=== PATIENT | female | born 1990 | race African-American/Black ===

== ENCOUNTER 2016-12-26 03:22 | Emergency (ER) | payer MEDICAID, OTHER ==
[~2016-12-26] VITALS: Ht 165.1 cm; Wt 61.0 kg
[2016-12-26] MEDS ORDERED: SODIUM CHLORIDE 0.9% 1,000 ML IV ONE (04:17)
[2016-12-26] MEDS ORDERED: HYDROCODONE/ACETAMINOPHEN 5/325MG TABLET PO STA (04:17)
[2016-12-26 04:34] LABS: HEMATOCRIT. 27.3 % (36.0-48.0); HEMOGLOBIN. 9.4 g/dL (12.0-16.0); MEAN CORPUSCULAR HEMOGLOBIN 28.2 pg (28.0-32.0); MEAN CORPUSCULAR HGB CONC 34.3 g/dL (31.0-37.0); MEAN CORPUSCULAR VOLUME 82.2 fL (81.0-99.0); MEAN PLATELET VOLUME 7.6 fl (7.4-10.4); PLATELET 310 x1000/uL (130-400); RED BLOOD CELL COUNT 3.32 mill/uL (4.2-5.4); RED CELL DISTRIBUTION WIDTH 13.7 % (11.6-14.6); WHITE BLOOD COUNT 7.8 x1000/uL (4.5-11.0)
[2016-12-26 04:35] LABS: DIFFERENTIAL COMMENT 1
[2016-12-26 04:44] LABS: ALANINE AMINOTRANSFERASE < 6 IU/L (13-61); ANION GAP 15; CALCIUM 8.2 mg/dL (8.5-10.1); CARBON DIOXIDE 27 mEq/L (21-32); CHLORIDE 100 mEq/L (98-107); INDEX HEMOLYSI 1 (1-3); INDEX ICTERIC 1 (1-4); INDEX LIPEMIC 1 (1-3); UREA NITROGEN BLOOD 11 mg/dL (7-21); eGFR > 60 mL/min (>60)
[2016-12-26 05:46] LABS: CLARITY URINE CLEAR (CLEAR); COLOR URINE YELLOW (YELLOW); GLUCOSE URINE NEGATIVE (NEGATIVE); KETONES URINE 1+ (NEGATIVE); LEUKOCYTE ESTERASE URINE TRACE (NEGATIVE); NITRITE URINE NEGATIVE (NEGATIVE); OCCULT BLOOD URINE TRACE (NEGATIVE); PH URINE 5.5 (4.5-8.0); PROTEIN URINE NEGATIVE (NEGATIVE); SPECIFIC GRAVITY URINE 1.013 (1.005-1.030)
[2016-12-26 06:22] LABS: SQUAMOUS EPITHELIAL CELL URINE FEW /lpf (RARE/1+)
[2016-12-26 06:32] LABS: WBC URINE 0-2 /hpf (0-2)
[2016-12-26 06:34] LABS: BACTERIA URINE TRACE; RBC URINE 0-2 /hpf (0-2)
[2016-12-26 06:48] LABS: PLATELET ESTIMATE NORMAL
[2016-12-26 07:29] VITALS: BP 98/57
== END 2016-12-26 07:31 | disposition home or self-care (01) ==
LOC: ER 03:22
DX: R51 Headache (principal); R19.7 Diarrhea, unspecified; R52 Pain, unspecified; R11.2 Nausea with vomiting, unspecified; J45.909 Unspecified asthma, uncomplicated; Z87.440 Personal history of urinary (tract) infections
CPT/HCPCS: 36415; 80053; 81001; 83605; 85025; 96360; 96361; 99285; J7030; Z7610

== ENCOUNTER 2018-04-16 03:10 | Emergency (ER) | payer MEDICAID, OTHER ==
[~2018-04-16] VITALS: Ht 165.1 cm; Wt 63.0 kg
[2018-04-16] MEDS ORDERED: ONDANSETRON HCL 4MG/2ML VIAL IV STA (05:42)
[2018-04-16] MEDS ORDERED: SODIUM CHLORIDE 0.9% 1,000 ML IV ONE ×2 (05:42→09:45)
[2018-04-16 06:11] LABS: BASOPHILS % 0.2 % (0.0-2.0); HEMATOCRIT. 35.3 % (36.0-48.0); LYMPHOCYTES % 8.4 % (20.0-50.0); MEAN CORPUSCULAR HEMOGLOBIN 29.1 pg (28.0-32.0); MEAN CORPUSCULAR VOLUME 85.3 fL (81.0-99.0); MEAN PLATELET VOLUME 7.9 fl (7.4-10.4); MONOCYTES % 2.5 % (2.0-8.0); NEUTROPHILS % 88.9 % (40.0-76.0); PLATELET 307 x1000/uL (130-400); RED BLOOD CELL COUNT 4.14 mill/uL (4.2-5.4)
[2018-04-16 06:13] LABS: CHLORIDE 107 mEq/L (98-107)
[2018-04-16 06:32] LABS: HCG SCREEN NEGATIVE
[2018-04-16 10:30] VITALS: BP 120/70
[2018-04-16 10:36] LABS: CLARITY URINE CLEAR (CLEAR); COLOR URINE YELLOW (YELLOW); KETONES URINE TRACE (NEGATIVE); LEUKOCYTE ESTERASE URINE TRACE (NEGATIVE); NITRITE URINE NEGATIVE (NEGATIVE); OCCULT BLOOD URINE NEGATIVE (NEGATIVE); PROTEIN URINE NEGATIVE (NEGATIVE); SPECIFIC GRAVITY URINE 1.013 (1.005-1.030); UROBILINOGEN URINE 0.2 E.U./dL (0.2-1.0)
== END 2018-04-16 11:02 | disposition home or self-care (01) ==
LOC: ER 03:10
DX: F10.129 Alcohol abuse with intoxication, unspecified (principal); N39.0 Urinary tract infection, site not specified; Y90.9 Presence of alcohol in blood, level not specified
CPT/HCPCS: 36415; 80053; 81003; 83690; 84703; 85025; 96361; 96374; 99285; J2405; J7030; Z7610

== ENCOUNTER 2019-07-28 10:55 | Observation (INO) | payer OTHER | END 2019-07-28 14:15 | disposition home or self-care (01) | LOC: 8 EST LDRP 10:55 | PROVIDERS: ADMIT Obstetrics & Gynecology; ATTEND Obstetrics & Gynecology | DX: O46.93 Antepartum hemorrhage, unspecified, third trimester (principal); Z3A.33 33 weeks gestation of pregnancy | CPT/HCPCS: 76805; 76818; 99281; G0378 ==

== ENCOUNTER 2019-07-29 13:18 | Observation (INO) | payer OTHER ==
[2019-07-29 14:24] LABS: CLARITY URINE TURBID (CLEAR); COLOR URINE RED (YELLOW); KETONES URINE 1+ (NEGATIVE); LEUKOCYTE ESTERASE URINE 2+ (NEGATIVE); NITRITE URINE NEGATIVE (NEGATIVE); OCCULT BLOOD URINE 3+ (NEGATIVE); PH URINE 6.5 (4.5-8.0); PROTEIN URINE 2+ (NEGATIVE); SPECIFIC GRAVITY URINE 1.013 (1.005-1.030)
[2019-07-29] MEDS ORDERED: LACTATED RINGERS 1,000 ML IV SCH (15:45)
[2019-07-29] MEDS ORDERED: CEFAZOLIN 2,000 MG in DEXT 5% WATER 100 ML IV NR (16:00)
== END 2019-07-29 14:05 | disposition home or self-care (01) ==
LOC: 8 EST LDRP 13:18
PROVIDERS: ADMIT Obstetrics & Gynecology; ATTEND Obstetrics & Gynecology
DX: O46.93 Antepartum hemorrhage, unspecified, third trimester (principal); Z3A.33 33 weeks gestation of pregnancy
CPT/HCPCS: 81003; 99281; G0378; J0690; J7060

== ENCOUNTER 2019-08-08 21:43 | Inpatient (IN) | payer OTHER ==
[~2019-08-08] VITALS: Ht 165.1 cm; Wt 83.0 kg
[2019-08-08] MEDS ORDERED: FERR-71 MT (22:19)
[2019-08-09] LABS: CLARITY URINE TURBID (CLEAR); KETONES URINE 2+ (NEGATIVE); LEUKOCYTE ESTERASE URINE 3+ (NEGATIVE); NITRITE URINE POSITIVE (NEGATIVE); OCCULT BLOOD URINE 3+ (NEGATIVE); PROTEIN URINE 3+ (NEGATIVE); SPECIFIC GRAVITY URINE 1.016 (1.005-1.030)
[2019-08-09 00:24] LABS: COLOR URINE BLOODY (YELLOW)
[2019-08-09] MEDS ORDERED: CEFAZOLIN 2,000 MG in DEXT 5% WATER 100 ML IV SCH ×2 (02:30→21:00)
[2019-08-09] MEDS: DEXT 5%/LACTATED RINGERS 1,000 ML IV SCH ×2 (03:05→21:44)
[2019-08-09] MEDS: CEFAZOLIN 2,000 MG in DEXT 5% WATER 100 ML IV SCH (20:49)
[2019-08-10] MEDS: CEFAZOLIN 2,000 MG in DEXT 5% WATER 100 ML IV SCH ×3 (02:39→16:30)
[2019-08-10 05:37] LABS: BASOPHILS % 0.7 % (0.0-2.0); EOSINOPHILS % 1.9 % (0.0-5.0); HEMATOCRIT. 25.4 % (36.0-48.0); HEMOGLOBIN. 8.6 g/dL (12.0-16.0); LYMPHOCYTES % 33.7 % (20.0-50.0); MEAN CORPUSCULAR HEMOGLOBIN 28.3 pg (28.0-32.0); MEAN CORPUSCULAR VOLUME 83.7 fL (81.0-99.0); MEAN PLATELET VOLUME 7.5 fl (7.4-10.4); MONOCYTES % 11.6 % (2.0-8.0); NEUTROPHILS % 52.1 % (40.0-76.0); PLATELET 267 x1000/uL (130-400); RED BLOOD CELL COUNT 3.04 mill/uL (4.2-5.4); RED CELL DISTRIBUTION WIDTH 14.4 % (11.6-14.6)
[2019-08-10] MEDS: DEXT 5%/LACTATED RINGERS 1,000 ML IV SCH (07:42)
[2019-08-10] MEDS ORDERED: LACTATED RINGERS 1,000 ML IV SCH (12:30)
== END 2019-08-10 17:00 | disposition home or self-care (01) | DRG 566 ==
LOC: OBSVTOIN 21:43 → 8 EST LDRP 21:43
PROVIDERS: ADMIT Specialist; ATTEND Specialist
DX: O23.13 Infections of bladder in pregnancy, third trimester (principal); Z3A.35 35 weeks gestation of pregnancy
CPT/HCPCS: 36415; 72195; 74181; 76770; 76805; 76818; 81003; 99281; G0378; J0690; J7040; J7060; J7120; J7121